=== PATIENT | male | born 1955 | race Hispanic/Latino ===

== ENCOUNTER 2020-05-26 12:52 | Emergency (ER) | payer OTHER ==
[2020-05-26 13:33] LABS: Absolute Lymphocytes (CBC) 1.5 K/uL (0.7-4.9); Basophils % 0.3 % (0-1.3); Hematocrit 46.9 % (39.6-49.0); Lymphocytes % 12.6 % (15.3-44.8); MPV 8.9 fL (7.6-11.3); RBC Red Blood Cell Count 5.31 M/uL (4.33-5.43)
[2020-05-26] MEDS ORDERED: MAGNES/ALUMIN/SIMET 30ML UCUP ONE (13:42)
[2020-05-26] MEDS ORDERED: LIDOCAINE VISCOUS 2% SOLN 15 ML UDC ONE (13:42)
[2020-05-26 13:52] LABS: ALT/SGPT 43 U/L (12-78); AST/SGOT 24 U/L (15-37); Albumin 3.8 g/dL (3.4-5.0); Alkaline Phosphatase 91 U/L (45-117); BUN Blood Urea Nitrogen 21 mg/dL (7-18); Bicarbonate 28 mmol/L (21-32); Bilirubin Direct 0.3 mg/dL (0-0.2); Glucose Level 139 mg/dL (74-106); Lipase 87 U/L (73-393); Potassium 3.9 mmol/L (3.5-5.1); Protein, Total 7.3 g/dL (6.4-8.2); Sodium Level 141 mmol/L (136-145); Troponin (Emerg Dept Use Only) < 0.02 ng/mL (0.0-0.045)
--- NOTE | 2020-05-26 14:53 | RAD REPORT ---
EXAM DESCRIPTION: US - Abdomen Exam Limited - 05/26/2020 2:16 pm CLINICAL HISTORY: EPIGASTRIC PAIN COMPARISON: No comparisons FINDINGS: No gallstones, sludge or other abnormalities within the gallbladder lumen. There is no wal l thickening or pericholecystic fluid. No common duct stone or biliary tree dilatation identified. IMPRESSION: Normal gallbladder and biliary tree ultrasound.
--- NOTE | 2020-05-26 15:10 | RAD REPORT ---
EXAM DESCRIPTION: CT - Abdomen Pelvis W Contrast - 05/26/2020 2:46 pm CLINICAL HISTORY: ABD PAIN COMPARISON: Abdomen Exam Limited dated 05/26/2020 TECHNIQUE: Biphasic, helical CT imaging of the abdomen and pelvis was performed following 100 ml non -ionic IV contrast. Delay 5 minutes images also obtained. No oral contrast. All CT scans are performed using dose optimization technique as appropriate and may include automated exposure control or mA/KV adjustment according to patient size. FINDINGS: No suspicious findings in the lung bases. The liver, spleen, and pancreas show no suspicious findings. In the dome of the right lobe is a 3.1 c entimeter thin-walled fluid attenuation homogeneous mass that does not change characteristics between arterial, venous and delayed imaging. An additional small 18 millimeter mass is present near the fal ciform ligament also showing cyst characteristics. No gallbladder or biliary tree abnormality. Symmetric renal function is seen with no hydronephrosis or suspicious renal mass. No pyelonephritis o r acute parenchymal process. No bladder abnormalities. No adrenal abnormalities. No gastric dilatation or gastric wall thickening. No duodenum abnormality. Small bowel is not dilated and no focal small bowel mass seen. There is a mild congested or edematous appearance to the mesente nasim fat in the left mid abdomen adjacent to loops of jejunum. This is nonspecific. Enteritis is possi ble. Patient's symptoms did not localize to the mid abdomen. No appendicitis findings. No free air, f ree fluid or inflammatory stranding. No mass or bulky lymphadenopathy. Small fat only left inguinal hernia is present. No suspicious bony findings. Prominent facet degenerative change seen in the lower lumbar spine. IMPRESSION: Contrast enhanced CT abdomen and pelvis showing no acute or emergent finding. Stranding or edema in the mesenteric fat left mid abdomen could be an indication of enteritis. This i s somewhat distant from the patient's pain pattern which was described as epigastric.
--- NOTE | 2020-05-26 15:13 | EDPHYS ---
Physician Documentation [facility] Name: Ok Wong Jr Age: 64 yrs Sex: Male : 1955 Arrival Date: 05/26/2020 Time: 12:56 Bed 7 Private MD: ED Physician Eloy Lindsay HPI: 05/26 13:18 This 64 yrs old Male presents to ER via Ambulatory with complaints of Chest rn Pain. 13:18 The patient or guardian reports chest pain that is located primarily in the epigastric rn area. Onset: this morning. The pain does not radiate. Associated signs and symptoms: Pertinent positives: abdominal pain, Pertinent negatives: cough, diaphoresis, lower extremity swelling, palpitations, shortness of breath, syncope, vomiting. The chest pain is described as aching, dull. Duration: The patient or guardian reports a single episode, that is still ongoing. Modifying factors: The symptoms are alleviated by nothing. the symptoms are aggravated by eating. Severity of pain: At its worst the pain was moderate in the emergency department the pain has improved. The patient has not experienced similar symptoms in the past. The patient has not recently seen a physician. Reports ate a sandwich then began to feel chest pain an hour later, now has migrated to epigastric region, and chest component is gone. no fever/vomiting/diarrhea/blood in stool or black stool. Has hx of gastric reflux. No gallbladder problems in past. . Historical: - Allergies: 13:00 Erythromycin; ca1 - Home Meds: 13:00 Tramadol Oral [Active]; ca1 - PMHx: 13:00 Back pain; Gastric Reflux; High Cholesterol; ca1 - PSHx: 13:00 Appendectomy; ca1 - Immunization history:: Adult Immunizations up to date, Flu vaccine is up to date. - Social history:: Smoking status: Patient reports the use of cigarette tobacco products, cigars. - Family history:: not pertinent. - Hospitalizations: : No recent hospitalization is reported. ROS: 13:18 Constitutional: Negative for fever, chills, and weight loss, Eyes: Negative for injury, rn pain, redness, and discharge, Neck: Negative for injury, pain, and swelling, Cardiovascular: Negative for palpitations, and edema, Respiratory: Negative for shortness of breath, cough, wheezing, and pleuritic chest pain, Abdomen/GI: Negative for nausea, vomiting, diarrhea, and constipation, Back: Negative for injury and pain, MS/Extremity: Negative for injury and deformity, Skin: Negative for injury, rash, and discoloration, Neuro: Negative for headache, weakness, numbness, tingling, and seizure. Exam: 13:18 Constitutional: This is a well developed, well nourished patient who is awake, alert, rn and in no acute distress. Head/Face: Normocephalic, atraumatic. Cardiovascular: Regular rate and rhythm with a normal S1 and S2. No gallops, murmurs, or rubs. Normal PMI, no JVD. No pulse deficits. Respiratory: Lungs have equal breath sounds bilaterally, clear to auscultation and percussion. No rales, rhonchi or wheezes noted. No increased work of breathing, no retractions or nasal flaring. Abdomen/GI: soft, + epigastric tenderness, no rebound, neg maher Skin: Warm, dry MS/ Extremity: Pulses equal, no cyanosis. Neuro: Awake and alert, GCS 15 13:28 ECG was reviewed by the Attending Physician. rn Vital Signs: 12:56 BP 137 / 96; Pulse 71; Resp 16 S; Temp 98.3(O); Pulse Ox 99% on R/A; Weight 74.84 kg ca1 (R); Height 5 ft. 9 in. (175.26 cm) (R); Pain 10/10; 14:00 BP 148 / 81; Pulse 60; Resp 16; Pulse Ox 99% on R/A; ae4 14:52 BP 141 / 79; Pulse 62; Resp 14; Pulse Ox 99% on R/A; ae4 12:56 Body Mass Index 24.37 (74.84 kg, 175.26 cm) ca1 MDM: 13:08 Patient medically screened. rn 14:28 ED course: Feels much better after GI cocktail. . rn 15:12 Differential diagnosis: cholecystitis, Cholelithiasis gastritis, gastroesophageal rn reflux disease (GERD), pancreatitis, peptic ulcer disease. Data reviewed: vital signs, nurses notes, lab test result(s), radiologic studies, CT scan, ultrasound, and as a result, I will discharge patient. Counseling: I had a detailed discussion with the patient and/or guardian regarding: the historical points, exam findings, and any diagnostic results supporting the discharge/admit diagnosis, lab results, radiology results, the need for outpatient follow up, to return to the emergency department if symptoms worsen or persist or if there are any questions or concerns that arise at home. Response to treatment: the patient's symptoms have markedly improved after treatment. Special discussion: Based on the patient's Hx, exam, and Dx evaluation, there is no indication for emergent surgery or inpatient Tx. It is understood by the patient/guardian that if the Sx's persist or worsen they need to return immediately for re-evaluation. I discussed with the patient/guardian in detail that at this point there is no indication for admission to the hospital. It is understood, however, that if the symptoms persist or worsen the patient needs to return immediately for re-evaluation. 05/26 13:18 Order name: Basic Metabolic Panel; Complete Time: 13:55 rn 05/26 13:18 Order name: CBC with Diff; Complete Time: 13:55 rn 05/26 13:18 Order name: Hepatic Function; Complete Time: 13:55 rn 05/26 13:18 Order name: Lipase; Complete Time: 13:55 rn 05/26 13:18 Order name: Troponin (emerg Dept Use Only); Complete Time: 13:55 rn 05/26 13:18 Order name: US Abdomen Limited; Complete Time: 15:11 rn 05/26 13:18 Order name: IV Saline Lock; Complete Time: 13:31 rn 05/26 13:18 Order name: Labs collected and sent; Complete Time: 13:31 rn 05/26 13:18 Order name: EKG; Complete Time: 13:18 rn 05/26 13:18 Order name: EKG - Nurse/Tech; Complete Time: 13:25 rn 05/26 14:16 Order name: CT Abd/Pelvis - IV Contrast Only; Complete Time: 15:11 rn EC:28 Rate is 66 beats/min. Rhythm is regular. QRS Connelly is Normal. SD interval is normal. QRS rn interval is prolonged. QT interval is normal. No Q waves. T waves are Normal. No ST changes noted. Clinical impression: NSR w/ Non-specific ST/T Changes. Interpreted by me. Reviewed by me. Administered Medications: 13:30 Drug: GI Cocktail without - (Maalox Suspension 30 ml, Lidocaine Liquid 2 % 15 ae4 ml) Route: PO; 14:01 Follow up: Response: No adverse reaction; Other; Pt states pain ahs moved lower in his ae4 abdomen, provider notified, no new orders received. Disposition: 05/26/20 15:13 Discharged to Home. Impression: Gastritis, unspecified, without bleeding, Upper abdominal pain, unspecified. - Condition is Stable. - Discharge Instructions: Abdominal Pain, Adult, Gastritis, Adult. - Prescriptions for Zofran ODT 4 mg Oral tablet,disintegrating - place 1 tablet by TRANSLINGUAL route every 8 hours As needed; 20 tablet. Protonix 40 mg Oral Tablet - take 1 tablet by ORAL route once daily; 30 tablet. - Medication Reconciliation Form, Thank You Letter, Antibiotic Education, Prescription Opioid Use form. - Follow up: Private Physician; When: As needed; Reason: Recheck today's complaints, Re-evaluation by your physician. - Problem is new. - Symptoms have improved. Signatures: Dispatcher [employer] EDMS Eloy Lindsay MD MD rn Acob, YUSUF Rojas RN ca1 Jaret Guerra RN RN ae4 Corrections: (The following items were deleted from the chart) 15:29 15:13 05/26/2020 15:13 Discharged to Home. Impression: Gastritis, unspecified, without ae4 bleeding; Upper abdominal pain, unspecified. Condition is Stable. Forms are Medication Reconciliation Form, Thank You Letter, Antibiotic Education, Prescription Opioid Use. Follow up: Private Physician; When: As needed; Reason: Recheck today's complaints, Re-evaluation by your physician. Problem is new. Symptoms have improved. rn
--- NOTE | 2020-05-26 15:13 | ER ---
Nurse's Notes [facility] Name: Ok Wong Jr Age: 64 yrs Sex: Male : 1955 Arrival Date: 05/26/2020 Time: 12:56 Bed 7 Private MD: Diagnosis: Gastritis, unspecified, without bleeding;Upper abdominal pain, unspecified Presentation: 05/26 12:56 Chief complaint: Patient states: Chest pain 2 hrs MOUNTER. Denies HX of heart attack. CP ca1 constant, non-radiating, sharp. Also reports epigastric pain at this time. Denies N/V/dizziness/lightheadedness. Coronavirus screen: Client denies travel out of the [place] in the last 14 days. At this time, the client does not indicate any symptoms associated with coronavirus-19. Ebola Screen: Patient negative for fever greater than or equal to 101.5 degrees Fahrenheit, and additional compatible Ebola Virus Disease symptoms Patient denies exposure to infectious person. Patient denies travel to an Ebola-affected area in the 21 days before illness onset. No symptoms or risks identified at this time. Initial Sepsis Screen: Does the patient meet any 2 criteria? No. Patient's initial sepsis screen is negative. Does the patient have a suspected source of infection? No. Patient's initial sepsis screen is negative. Risk Assessment: Do you want to hurt yourself or someone else? Patient reports no desire to harm self or others. Onset of symptoms was May 26, 2020. 12:56 Method Of Arrival: Ambulatory ca1 12:56 Acuity: ABHI 3 ca1 Triage Assessment: 13:00 General: Appears in no apparent distress. comfortable, Behavior is calm, cooperative, ca1 appropriate for age. Pain: Complains of pain in chest Pain currently is 10 out of 10 on a pain scale. Pain began 2 hours ago. Is continuous. Cardiovascular: Rhythm is sinus rhythm. Historical: - Allergies: 13:00 Erythromycin; ca1 - Home Meds: 13:00 Tramadol Oral [Active]; ca1 - PMHx: 13:00 Back pain; Gastric Reflux; High Cholesterol; ca1 - PSHx: 13:00 Appendectomy; ca1 - Immunization history:: Adult Immunizations up to date, Flu vaccine is up to date. - Social history:: Smoking status: Patient reports the use of cigarette tobacco products, cigars. - Family history:: not pertinent. - Hospitalizations: : No recent hospitalization is reported. Screenin:11 Abuse screen: Denies threats or abuse. Nutritional screening: No deficits noted. ae4 Tuberculosis screening: No symptoms or risk factors identified. Fall Risk None identified. Assessment: 13:00 General: Appears in no apparent distress. comfortable, Behavior is calm, cooperative. ae4 Pain: Complains of pain in epigastric area Pain does not radiate. Neuro: Level of Consciousness is awake, alert, obeys commands, Oriented to person, place, time, situation, Appropriate for age. Cardiovascular: Heart tones S1 S2 present Patient's skin is warm and dry. Rhythm is regular. Respiratory: Airway is patent Respiratory effort is even, unlabored, Respiratory pattern is regular, symmetrical. GI: Abdomen is round Bowel sounds present X 4 quads. Pt reports normal formed BMs for the last two days. : No signs and/or symptoms were reported regarding the genitourinary system. EENT: No signs and/or symptoms were reported regarding the EENT system. Derm: Skin is dry, Skin is normal. Musculoskeletal: No signs and/or symptoms reported regarding the musculoskeletal system. 13:57 Reassessment: Pt states pain has moved down lower in his abdomen. Provider notified.. ae4 14:52 Reassessment: Patient appears in no apparent distress at this time. Patient and/or ae4 family updated on plan of care and expected duration. Pain level reassessed. Vital Signs: 12:56 BP 137 / 96; Pulse 71; Resp 16 S; Temp 98.3(O); Pulse Ox 99% on R/A; Weight 74.84 kg ca1 (R); Height 5 ft. 9 in. (175.26 cm) (R); Pain 10/10; 14:00 BP 148 / 81; Pulse 60; Resp 16; Pulse Ox 99% on R/A; ae4 14:52 BP 141 / 79; Pulse 62; Resp 14; Pulse Ox 99% on R/A; ae4 12:56 Body Mass Index 24.37 (74.84 kg, 175.26 cm) ca1 ED Course: 12:56 Patient arrived in ED. ca1 12:59 Triage completed. ca1 13:00 Arm band placed on right wrist. ca1 13:08 Eloy Lindsay MD is Attending Physician. rn 13:30 Inserted saline lock: 20 gauge in right antecubital area, using aseptic technique. ae4 Blood collected. 13:54 Jaret Guerra, RN is Primary Nurse. ae4 14:00 Bed in low position. Call light in reach. Side rails up X 1. Adult w/ patient. Cardiac ae4 monitor on. Pulse ox on. NIBP on. 14:00 Inserted. Patient maintains SpO2 saturation greater than 95% on room air. ae4 14:14 US Abdomen Limited In Process Unspecified. EDMS 14:45 CT Abd/Pelvis - IV Contrast Only In Process Unspecified. EDMS 15:28 No provider procedures requiring assistance completed. IV discontinued, intact, ae4 bleeding controlled, No redness/swelling at site. Pressure dressing applied. Administered Medications: 13:30 Drug: GI Cocktail without - (Maalox Suspension 30 ml, Lidocaine Liquid 2 % 15 ae4 ml) Route: PO; 14:01 Follow up: Response: No adverse reaction; Other; Pt states pain ahs moved lower in his ae4 abdomen, provider notified, no new orders received. Outcome: 15:13 Discharge ordered by . rn 15:28 Discharged to home ambulatory, with significant other. ae4 15:28 Condition: stable 15:28 Discharge instructions given to patient, Instructed on discharge instructions, follow up and referral plans. Demonstrated understanding of instructions, follow-up care, Prescriptions given X 2. 15:29 Patient left the ED. ae4 Signatures: Dispatcher [employer] EDMS Eloy Lindsay MD MD rn Acob, Crystal, RN RN ca1 Jaret Guerra, YUSUF RN ae4 Corrections: (The following items were deleted from the chart) 13:02 12:56 74.84 kg Reported; Height 5 ft. 9 in. Reported; BMI: 24.3; Pain 10/10; ca1 ca1
[2020-05-26 15:34] VITALS: TEMP 98.3; O2SAT 99
[2020-05-26 15:37] VITALS: BP 141/79
== END 2020-05-26 15:29 | disposition home or self-care (01) ==
LOC: ER 12:52
DX: K29.70 Gastritis, unspecified, without bleeding (principal); K21.9 Gastro-esophageal reflux disease without esophagitis; F17.290 Nicotine dependence, other tobacco product, uncomplicated; Z88.3 Allergy status to other anti-infective agents
CPT/HCPCS: 93005 ×2; 85025; 80048; 36415; 80076; 84484; 83690; 74177; 76705; 99285; Q9967

== ENCOUNTER 2021-02-18 02:42 | Emergency (ER) | payer OTHER ==
[2021-02-18 03:58] LABS: Absolute Lymphocytes (CBC) 1.6 K/uL (0.7-4.9); Basophils % 0.3 % (0-1.3); Hematocrit 46.3 % (39.6-49.0); Lymphocytes % 19.2 % (15.3-44.8); MPV 8.7 fL (7.6-11.3); RBC Red Blood Cell Count 5.07 M/uL (4.33-5.43)
[2021-02-18 04:01] LABS: Protime INR 0.97
[2021-02-18] MEDS ORDERED: NA CHLORIDE 0.9% 1,000 ML ONE (04:19)
[2021-02-18 04:25] LABS: Urine Blood Trace-intact (Negative); Urine Glucose Negative (Negative); Urine Protein Negative (Negative); Urine Specific Gravity >=1.030 (1.005-1.030)
[2021-02-18 04:44] LABS: ALT/SGPT 45 U/L (12-78); AST/SGOT 19 U/L (15-37); Albumin 3.6 g/dL (3.4-5.0); Alkaline Phosphatase 84 U/L (45-117); BUN Blood Urea Nitrogen 17 mg/dL (7-18); Bicarbonate 23 mmol/L (21-32); Bilirubin Direct 0.2 mg/dL (0-0.2); Bilirubin Total 0.5 mg/dL (0.2-1.0); Glucose Level 133 mg/dL (74-106); Magnesium 1.9 mg/dL (1.8-2.4); NT PRO-BNP 40 pg/mL (<125); Potassium 3.9 mmol/L (3.5-5.1); Protein, Total 6.7 g/dL (6.4-8.2); Sodium Level 143 mmol/L (136-145); Troponin (Emerg Dept Use Only) < 0.02 ng/mL (0.0-0.045)
[2021-02-18] MEDS ORDERED: LIDOCAINE VISCOUS 2% SOLN 15 ML UDC ONE (04:54)
[2021-02-18] MEDS ORDERED: MAGNES/ALUMIN/SIMET 30ML UCUP ONE (04:54)
--- NOTE | 2021-02-18 04:54 | ER ---
Nurse's Notes [facility] Name: Ok Wong Jr Age: 65 yrs Sex: Male : 1955 Arrival Date: 02/18/2021 Time: 02:46 Bed 10 Private MD: Diagnosis: Gastro-esophageal reflux disease without esophagitis;Dyspnea Presentation: 02/18 02:57 Chief complaint: Patient states: Pt states approx one hour ago he woke up and had some wg acid that he burped up and then partially aspirated making it feel like he couldn't breathe. Pt states he still has some burning sensation in his throat and feels like it still chepe hard to breath but not feeling SOB. States it feels like someone squeezing his throat. Pt has a hx of reflux and is takes omeprazole. Pt denies CP, Abd Pain, N/V/D, fever chills or any other complaints. Coronavirus screen: Vaccine status: Patient reports receiving the 2nd dose of the covid vaccine. Date September 28, 2020. Coronavirus screen: At this time, the client does not indicate any symptoms associated with coronavirus-19. Ebola Screen: Patient negative for fever greater than or equal to 101.5 degrees Fahrenheit, and additional compatible Ebola Virus Disease symptoms Patient denies exposure to infectious person. Patient denies travel to an Ebola-affected area in the 21 days before illness onset. No symptoms or risks identified at this time. Initial Sepsis Screen: Does the patient meet any 2 criteria? No. Patient's initial sepsis screen is negative. Does the patient have a suspected source of infection? No. Patient's initial sepsis screen is negative. Risk Assessment: Do you want to hurt yourself or someone else? Patient reports no desire to harm self or others. Onset of symptoms was February 18, 2021 at 01:45. 02:57 Method Of Arrival: Ambulatory 02:57 Method Of Arrival: Ambulatory 02:57 Acuity: ABHI 3 wg Triage Assessment: 03:02 General: Appears in no apparent distress. comfortable, well groomed, well developed, wg Behavior is calm, cooperative, appropriate for age. Pain: Complains of pain in throat Quality of pain is described as burning. Respiratory: Reports burning sentation Airway is patent Trachea midline Respiratory effort is even, unlabored, Respiratory pattern is regular, symmetrical, Breath sounds are clear bilaterally. Onset: The symptoms/episode began/occurred suddenly, the patient has mild shortness of breath. Historical: - Allergies: 03:02 Erythromycin; wg - Home Meds: 03:02 omeprazole Oral [Active]; Tramadol Oral [Active]; wg - PMHx: 03:02 Gastric Reflux; High Cholesterol; wg 03:10 Back pain; dc2 - Immunization history:: Adult Immunizations up to date. - Social history:: Smoking status: Patient denies any tobacco usage or history of. - Family history:: not pertinent. Screenin:10 Abuse screen: Denies threats or abuse. Denies injuries from another. Nutritional dc2 screening: No deficits noted. Tuberculosis screening: No symptoms or risk factors identified. Never had TB. Possible symptoms: None. Fall Risk None identified. No fall in past 12 months (0 pts). No secondary diagnosis (0 pts). Assessment: 03:10 Reassessment: Patient appears in no apparent distress at this time. General: Appears in dc2 no apparent distress. comfortable, well groomed, well developed, Behavior is calm, cooperative. Pain: Complains of pain in throat . co burning to throat 5/10 Pain does not radiate. Pain currently is 5 out of 10 on a pain scale. Quality of pain is described as burning, Pain began suddenly, 1 hour ago. Is continuous, Noted to be Patient playing solitare on phone since arriving, in nad. Pt states that when he woke up felt burning then felt like he couldn't breathe . States he is now having slight sob. Is 97% on room air. Call light within reach, continue to monitor. Pt advised of urine sample needed. 03:10 Neuro: No deficits noted. Respiratory: No deficits noted. Breath sounds are clear dc2 bilaterally. Musculoskeletal: No deficits noted. 04:00 Cardiovascular: Rhythm is sinus rhythm. dc2 04:20 Reassessment: Recollect green top and sent to lab. dc2 Vital Signs: 02:57 BP 138 / 78; Pulse 82; Resp 18; Temp 98.7; Pulse Ox 99% on R/A; Weight 76.2 kg; Height wg 69 in. (175.26 cm); Pain 5/10; 04:00 BP 135 / 84; Pulse 72; Resp 17; Temp 97.3; Pulse Ox 96% on R/A; Pain 5/10; dc2 04:42 BP 126 / 78; Pulse 65; Resp 17; Pulse Ox 99% on R/A; Pain 2/10; dc2 02:57 Body Mass Index 24.81 (76.20 kg, 175.26 cm) Vitals: 04:00 Cardiac Rhythm Assessment Regular Sinus rhythm. dc2 ED Course: 02:46 Patient arrived in ED. wm 03:01 Triage completed. wg 03:02 Arm band placed on left wrist. wg 03:10 Jennifer Iqbal, RN is Primary Nurse. dc2 03:10 Patient has correct armband on for positive identification. Bed in low position. Call dc2 light in reach. Side rails up X 1. Lights dimmed. 03:11 Mahin Toribio MD is Attending Physician. theo 03:33 EKG done, by ED staff, reviewed by Mahin Toribio MD. dc2 03:35 X-ray(s) taken. dc2 03:41 XRAY Chest (1 view) In Process Unspecified. EDMS 03:50 Basic Metabolic Panel Sent. dc2 03:50 CBC with Diff Sent. dc2 03:50 LFT's Sent. dc2 03:50 Magnesium Sent. dc2 03:50 NT PRO-BNP Sent. dc2 03:50 PT-INR Sent. dc2 03:50 Troponin (emerg Dept Use Only) Sent. 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 Pulse ox on. NIBP on. dc2 04:12 No provider procedures requiring assistance completed. dc2 04:18 Awaiting lab results, Awaiting radiology results. dc2 04:53 Parisa Constantino MD is Referral Physician. theo 04:58 IV discontinued, intact, bleeding controlled, No redness/swelling at site. Pressure dc2 dressing applied. Administered Medications: 05:17 Discontinued: NS 0.9% 1000 ml IV at 75 ml/hr continuous dc2 04:15 Drug: NS 0.9% 1000 ml Route: IV; Rate: 75 ml/hr; Site: right subclavian; Delivery: dc2 Primary tubing; 04:35 Drug: ProTONIX (pantoprazole) 40 mg Route: IVP; Rate: bolus; Site: right antecubital; dc2 04:56 Follow up: Response: Marked relief of symptoms dc2 04:56 Follow up: Response: Marked relief of symptoms dc2 04:36 Drug: GI Cocktail without - (Maalox Suspension 30 ml, Lidocaine Liquid 2 % 15 dc2 ml) Route: PO; 04:57 Follow up: Response: Marked relief of symptoms dc2 Outcome: 04:53 Discharge ordered by . theo 04:58 Discharged to home ambulatory. dc2 04:58 Condition: improved 04:58 Discharge instructions given to patient, Instructed on discharge instructions, Demonstrated understanding of instructions, Prescriptions given X 2. 05:18 Patient left the ED. dc2 Signatures: Dispatcher [employer] EDMahin Gibson MD MD cha Marsh, Wendy wm Gamba, Liam, RN Jennifer Iqbal RN RN dc2 Corrections: (The following items were deleted from the chart) 03:05 02:57 Chief complaint: Patient states: Pt states approx one hour ago he woke up and had wg some acid that he burped up and then partially aspirated making it feel like he couldn't breathe. Pt states he still has some burning sensation in his throat and feels like it still chepe hard to breath but not feeling SOB. Pt has a hx of reflux and is takes omeprazole. Pt denies CP, Abd Pain, N/V/D, fever chills or any other complaints. 03:49 02:57 Acuity: ABHI 4 [facility]
--- NOTE | 2021-02-18 04:54 | EDPHYS ---
Physician Documentation [facility] Name: Ok Wong Jr Age: 65 yrs Sex: Male : 1955 Arrival Date: 02/18/2021 Time: 02:46 Bed 10 Private MD: ED Physician Mahin Toribio HPI: 02/18 04:25 This 65 yrs old Male presents to ER via Ambulatory with complaints of theo Breathing Difficulty. 04:25 The patient has shortness of breath at rest, with light activity. Onset: The theo symptoms/episode began/occurred just prior to arrival. Duration: The symptoms are continuous. The patient's shortness of breath has no apparent modifying factors. Associated signs and symptoms: The patient has no apparent associated signs or symptoms. Severity of symptoms: At their worst the symptoms were moderate in the emergency department the symptoms have improved mildly. The patient has not experienced similar symptoms in the past. Historical: - Allergies: 03:02 Erythromycin; wg - Home Meds: 03:02 omeprazole Oral [Active]; Tramadol Oral [Active]; wg - PMHx: 03:02 Gastric Reflux; High Cholesterol; wg 03:10 Back pain; dc2 - Immunization history:: Adult Immunizations up to date. - Social history:: Smoking status: Patient denies any tobacco usage or history of. - Family history:: not pertinent. ROS: 04:25 Constitutional: Negative for fever, chills, and weight loss, Eyes: Negative for injury, theo pain, redness, and discharge, ENT: Negative for injury, pain, and discharge, Neck: Negative for injury, pain, and swelling, Cardiovascular: Negative for chest pain, palpitations, and edema, Abdomen/GI: Negative for abdominal pain, nausea, vomiting, diarrhea, and constipation, Back: Negative for injury and pain, : Negative for injury, bleeding, discharge, and swelling, MS/Extremity: Negative for injury and deformity, Skin: Negative for injury, rash, and discoloration, Neuro: Negative for headache, weakness, numbness, tingling, and seizure, Psych: Negative for depression, anxiety, suicide ideation, homicidal ideation, and hallucinations, Allergy/Immunology: Negative for hives, rash, and allergies, Endocrine: Negative for neck swelling, polydipsia, polyuria, polyphagia, and marked weight changes, Hematologic/Lymphatic: Negative for swollen nodes, abnormal bleeding, and unusual bruising. 04:25 Respiratory: Positive for shortness of breath. Exam: 04:25 Constitutional: This is a well developed, well nourished patient who is awake, alert, theo and in no acute distress. Head/Face: Normocephalic, atraumatic. Eyes: Pupils equal round and reactive to light, extra-ocular motions intact. Lids and lashes normal. Conjunctiva and sclera are non-icteric and not injected. Cornea within normal limits. Periorbital areas with no swelling, redness, or edema. ENT: Nares patent. No nasal discharge, no septal abnormalities noted. Tympanic membranes are normal and external auditory canals are clear. Oropharynx with no redness, swelling, or masses, exudates, or evidence of obstruction, uvula midline. Mucous membranes moist. Neck: Trachea midline, no thyromegaly or masses palpated, and no cervical lymphadenopathy. Supple, full range of motion without nuchal rigidity, or vertebral point tenderness. No Meningismus. Chest/axilla: Normal chest wall appearance and motion. Nontender with no deformity. No lesions are appreciated. Cardiovascular: Regular rate and rhythm with a normal S1 and S2. No gallops, murmurs, or rubs. Normal PMI, no JVD. No pulse deficits. Abdomen/GI: Soft, non-tender, with normal bowel sounds. No distension or tympany. No guarding or rebound. No evidence of tenderness throughout. Back: No spinal tenderness. No costovertebral tenderness. Full range of motion. Male : Normal genitalia with no discharge or lesions. Skin: Warm, dry with normal turgor. Normal color with no rashes, no lesions, and no evidence of cellulitis. MS/ Extremity: Pulses equal, no cyanosis. Neurovascular intact. Full, normal range of motion. Neuro: Awake and alert, GCS 15, oriented to person, place, time, and situation. Cranial nerves II-XII grossly intact. Motor strength 5/5 in all extremities. Sensory grossly intact. Cerebellar exam normal. Normal gait. Psych: Awake, alert, with orientation to person, place and time. Behavior, mood, and affect are within normal limits. 04:25 Respiratory: the patient does not display signs of respiratory distress, Respirations: normal, Breath sounds: are clear throughout, no bronchial sounds, no decreased breath sounds, no rales, rhonchi, no stridor, no wheezing, Respiratory rate: 17 04:40 ECG was reviewed by the Attending Physician. [facility] Vital Signs: 02:57 BP 138 / 78; Pulse 82; Resp 18; Temp 98.7; Pulse Ox 99% on R/A; Weight 76.2 kg; Height wg 69 in. (175.26 cm); Pain 5/10; 04:00 BP 135 / 84; Pulse 72; Resp 17; Temp 97.3; Pulse Ox 96% on R/A; Pain 5/10; dc2 04:42 BP 126 / 78; Pulse 65; Resp 17; Pulse Ox 99% on R/A; Pain 2/10; dc2 02:57 Body Mass Index 24.81 (76.20 kg, 175.26 cm) wg MDM: 03:11 Patient medically screened. theo 04:28 Differential diagnosis: Anxiety Reaction asthma, Bronchitis CHF exacerbation, Chronic theo Obstructive Pulmonary Disease Unstable Angina. Antibiotic administration: Not indicated. The patient's Wells Deep Vein Thrombosis Score was calculated as follows: Total Score: 0-2 Pts- Low Risk. The patient's pulmonary embolism risk score was calculated as follows: Total Score: 0-2 points. This patient was found to be at low risk for a pulmonary embolism by using the Well's assessment criteria. Immunization status: Pneumococcal vaccine: Influenza vaccine: Data reviewed: vital signs, nurses notes, lab test result(s), EKG, radiologic studies, plain films. Data interpreted: vehicle monitor technician: rate is 96 beats/min, rhythm is normal sinus rhythm, Pulse oximetry: on room air is 96 %. Test interpretation: by ED physician or midlevel provider: ECG, plain radiologic studies. Counseling: I had a detailed discussion with the patient and/or guardian regarding: the historical points, exam findings, and any diagnostic results supporting the discharge/admit diagnosis, lab results, radiology results, the need for outpatient follow up, for definitive care, a family practitioner, a sales planning analyst. 02/18 03:13 Order name: Basic Metabolic Panel; Complete Time: 04:53 [facility] 02/18 03:13 Order name: CBC with Diff; Complete Time: 04:29 [facility] 02/18 03:13 Order name: LFT's; Complete Time: 04:53 [facility] 02/18 03:13 Order name: Magnesium; Complete Time: 04:53 [facility] 02/18 03:13 Order name: NT PRO-BNP; Complete Time: 04:53 [facility] 02/18 03:13 Order name: PT-INR; Complete Time: 04:29 [facility] 02/18 03:13 Order name: Troponin (emerg Dept Use Only); Complete Time: 04:53 [facility] 02/18 03:13 Order name: XRAY Chest (1 view) [facility] 02/18 04:25 Order name: Urine Dipstick-Ancillary; Complete Time: 04:29 [facility] 02/18 05:15 Order name: SARS-COV-2 RT PCR [facility] 02/18 03:13 Order name: EKG; Complete Time: 03:14 [facility] 02/18 03:13 Order name: Cardiac monitoring; Complete Time: 03:49 [facility] 02/18 03:13 Order name: EKG - Nurse/Tech; Complete Time: 03:49 [facility] 02/18 03:13 Order name: IV Saline Lock; Complete Time: 03:49 [facility] 02/18 03:13 Order name: Labs collected and sent; Complete Time: 03:49 [facility] 02/18 03:13 Order name: O2 Per Protocol; Complete Time: 03:49 [facility] 02/18 03:13 Order name: O2 Sat Monitoring; Complete Time: 03:49 [facility] 02/18 03:13 Order name: Urine Dipstick-Ancillary (obtain specimen); Complete Time: 04:25 [facility] EC:40 Rate is 70 beats/min. Rhythm is regular. QRS Melba is Normal. [place] interval is shortened theo at 110 msec. QRS interval is normal. QT interval is normal. No Q waves. T waves are Normal. No ST changes noted. Clinical impression: NSR w/ Non-specific ST/T Changes and No evidence of ischemia. Interpreted by me. Reviewed by me. Administered Medications: 05:17 Discontinued: NS 0.9% 1000 ml IV at 75 ml/hr continuous dc2 04:15 Drug: NS 0.9% 1000 ml Route: IV; Rate: 75 ml/hr; Site: right subclavian; Delivery: dc2 Primary tubing; 04:35 Drug: ProTONIX (pantoprazole) 40 mg Route: IVP; Rate: bolus; Site: right antecubital; dc2 04:56 Follow up: Response: Marked relief of symptoms dc2 04:56 Follow up: Response: Marked relief of symptoms dc2 04:36 Drug: GI Cocktail without - (Maalox Suspension 30 ml, Lidocaine Liquid 2 % 15 dc2 ml) Route: PO; 04:57 Follow up: Response: Marked relief of symptoms dc2 Disposition Summary: 02/18/21 04:53 Discharge Ordered Location: Home theo Problem: new theo Symptoms: have improved theo Condition: Stable theo Diagnosis - Gastro-esophageal reflux disease without esophagitis theo - Dyspnea theo Followup: theo - With: Private Physician - When: 2 - 3 days - Reason: Recheck today's complaints, Continuance of care, Re-evaluation by your physician Followup: theo - With: - When: 2 - 3 days - Reason: Recheck today's complaints, Continuance of care, Re-evaluation by your physician Discharge Instructions: - Discharge Summary Sheet theo - Food Choices for Gastroesophageal Reflux Disease, Adult theo - Esophagitis theo - Gastroesophageal Reflux Disease, Adult, [id number] Forms: - Medication Reconciliation Form theo - Thank You Letter theo - Antibiotic Education theo - Prescription Opioid Use theo - Work release form mw2 - School release form dc2 Prescriptions: - Maalox Maximum Strength - take 30 milliliter by ORAL route every 4-6 hours PRN GASTROESOGEAL REFLUX; 180 theo milliliter; Refills: 0, Product Selection Permitted - Protonix 40 mg Oral Tablet - take 1 tablet by ORAL route once daily; 30 tablet; Refills: 0, Product theo Selection Permitted Signatures: Dispatcher [employer] Mahin Alvarado MD MD cha Gamba, Liam, RN wg Charters, Denise, RN RN dc2 Corrections: (The following items were deleted from the chart) 03:42 03:14 CORONAVIRUS+MR.LAB.BRZ ordered. ED EDMS
[2021-02-18] MEDS ORDERED: PANTOPRAZOLE 40 MG INJ ONE (04:58)
[2021-02-18 05:25] VITALS: TEMP 97.3
[2021-02-18 05:27] VITALS: BP 126/78; O2SAT 99
--- NOTE | 2021-02-18 08:09 | RAD REPORT ---
EXAM DESCRIPTION: Savita Single View02/18/2021 3:41 am CLINICAL HISTORY: Shortness of breath COMPARISON: none FINDINGS: The lungs appear clear of acute infiltrate. The heart is normal size IMPRESSION: No acute abnormalities displayed
--- NOTE | 2021-02-18 10:22 | EKG ---
Test Date: 2021-02-18 Test Time: 03:33:24 Type Bar And Segment Assembler: CRIS Thomas MEASUREMENT RESULTS: Intervals: Rate: 70 GA: 110 QRSD: 136 QT: 406 QTc: 438 [place]ili: P: 53 GA: 110 QRS: 79 T: 48 INTERPRETIVE STATEMENTS: Sinus rhythm with short GA Right bundle branch block Abnormal ECG Compared to ECG 05/26/2020 13:19:50 Short GA interval now present Electronically Signed On 02-18-21 10:21:41 CDT by Steven Pat
== END 2021-02-18 05:18 | disposition home or self-care (01) ==
LOC: ER 02:42
DX: K21.9 Gastro-esophageal reflux disease without esophagitis (principal); E78.00 Pure hypercholesterolemia, unspecified; Z88.3 Allergy status to other anti-infective agents
CPT/HCPCS: 93005; 85025; 80048; 36415; 83735; 85610; 80076; 81003; 84484; 83880; 71045; 96374; 99284; U0003; C9113; J7030